=== PATIENT | male | born 1990 | race Asian ===

== ENCOUNTER 2019-07-08 10:56 | Emergency (ER) | payer OTHER ==
[~2019-07-08] VITALS: Ht 170.2 cm; Wt 62.1 kg
[2019-07-08 11:09] VITALS: BP 94/67; Ht 170.2 cm; Wt 62.1 kg
== END 2019-07-08 12:26 | disposition home or self-care (01) ==
LOC: ED 10:56
DX: M25.562 Pain in left knee (principal); X58.XXXA Exposure to other specified factors, initial encounter; Y93.67 Activity, basketball; Y92.310 Basketball court as the place of occurrence of the external cause; Y99.8 Other external cause status